=== PATIENT | female | born 1965 | race Caucasian/White ===

== ENCOUNTER → 2023-11-17 11:06 | Outpatient (REF) | payer OTHER, SELFPAY | LOC: RAD 11:06 | PROVIDERS: ATTENDING PHYSICIAN Surgery Vascular Surgery; FAMILY PHYSICIAN Internal Medicine | DX: I71.40 Abdominal aortic aneurysm, without rupture, unspecified (principal) | CPT/HCPCS: 74174; Q9967 ==

== ENCOUNTER 2023-12-01 14:57 | Inpatient (IN) | payer BC, SELFPAY ==
[2023-12-01] VITALS (14 sets, daily range): BP systolic 117–142; BP diastolic 77–106; BMI 24.8
--- NOTE | 2023-12-01 13:57 | W.PN.UPDATE ---
Update Note
Progress Note Update
Vascular H&P:
Plan:
-Admit
-NPO after midnight
-OR tomorrow for EVAR
[2023-12-01 14:31] LABS: % Immature Granulocytes 0.4 % (0-0.5); % Lymphocytes 34.3 % (20.5-51.1); % Monocytes 6.6 % (1.7-9.3); % Neutrophils 54.7 % (42.2-75.2); Absolute Basophils 0.1 10^3/uL (0-0.2); Absolute Eosinophils 0.4 10^3/uL (0-0.7); Absolute Immature Granulocytes 0.1 10^3/uL (0-0.05); Absolute Monocytes 0.8 10^3/uL (0.1-0.6); Absolute Neutrophils 6.3 10^3/uL (1.4-6.5); Hemoglobin 14.3 g/dL (12.0-16.0); Mean Corp Hgb Conc. 34.9 g/dL (33.0-37.0); Mean Corpuscular Hgb 31.2 pg (27.0-31.0); Mean Corpuscular Volume 89.3 fL (81.0-99.0); Mean Platelet Volume 8.9 fL (7.4-10.4); Nucleated Red Blood Cells % 0 %; Platelet Count 404 10^3/uL (130-400); Red Blood Cell Count 4.59 10^6/uL (4.20-5.40); White Blood Cell Count 11.6 10^3/uL (4.8-10.8)
[2023-12-01 14:43] LABS: INR 0.94; PT 12.6 Sec (11.4-14.6)
[2023-12-01 14:44] LABS: APTT 26.7 Sec (23.4-35.0)
[2023-12-01 14:46] LABS: ALT (SGPT) 18 U/L (0-35); AST (SGOT) 24 U/L (14-36); Alkaline Phosphatase 84 U/L (38-126); Blood Urea Nitrogen 9 mg/dl (7-17); Calcium 9.2 mg/dl (8.4-10.2); Carbon Dioxide 27 mmol/L (22-30); Chloride 104 mmol/L (98-107); Estimated Creatinine Clearance 71 ml/min; Glucose 101 mg/dl (70-99); Lipase 225 U/L (23-300); Potassium 4.7 mmol/L (3.5-5.1); Sodium 135 mmol/L (135-145); Total Bilirubin 0.4 mg/dl (0.2-1.3); Total Protein 6.8 g/dl (6.3-8.2); eGFR > 60.00
[2023-12-01] MEDS: DILAUDID 0.5 MG IV (14:47)
[2023-12-01 14:56] LABS: Troponin I < 0.012 ng/ml
[2023-12-01] MEDS: MORPHINE SULFATE 2 MG IV ×2 (16:31→19:50)
[2023-12-01] MEDS: HEPARIN 5000 UNITS SC (16:31)
[2023-12-01 16:56] LABS: Hematocrit 40.3 % (37.0-47.0); Hemoglobin 14.1 g/dL (12.0-16.0); Mean Corpuscular Hgb 31.3 pg (27.0-31.0); Mean Corpuscular Volume 89.6 fL (81.0-99.0); Mean Platelet Volume 8.9 fL (7.4-10.4); Platelet Count 378 10^3/uL (130-400); Red Cell Dist. Width 12.9 % (11.5-14.5); White Blood Cell Count 11.7 10^3/uL (4.8-10.8)
[2023-12-01 16:59] LABS: Magnesium 2.1 mg/dl (1.6-2.3)
--- NOTE | 2023-12-01 16:59 | CON.INTV ---
Consultation
Consultation Request
Date/Time Consultation Requested: 12/01/2023 - 160
Date/Time Consultation Performed: 12/01/2023 - 162
Requesting Provider: Lilli Agustin
Performing Provider: Dr. Lehman
Reason for Consultation: Awaiting EVAR
Medical History
-
Chief Complaint: Elective EVAR
History of Present Illness:
58-year-old female with a past medical history of seizures, migraines, tobacco use disorder, insomnia, asthma, mixed hyperlipidemia, Crohn's disease, and GERD who presents with elective abdominal aortic aneurysm intervention. Patient follows with
Dr. Real as an outpatient with last office visit on 11/23/2023. During that visit her prior CT angiogram was reviewed showing a saccular component of her AAA extending towards the right posterior lateral aspect. Patient has right-sided back pain
and this is potentially related to this aneurysm. It is recommended to treat the aneurysm with aortic stent grafting and this was discussed in regards to its risks and benefits at that office visit. The patient has agreed to proceed with surgery
and she is now awaiting this to be done tomorrow morning/afternoon. Patient is admitted to the ICU while she is pending EVAR.
When I saw the patient she was in bed, nauseous, and having back pain which is on the right side of her back and wraps around to the front. The pain certainly interferes with her movement and causes her to be nauseous especially when she is about
to eat. She is also a smoker, smoking 1 PPD for about 40 years. She has occasional alcohol use and she also uses a THC tincture which helps with her seizures. Current vitals are: HR: 93, BP: 129/90, SpO2: 94% on room air. Patient denies
headache, chest pain, shortness of breath, abdominal pain, fevers or chills.
PMHx: seizures, migraines, tobacco use disorder, insomnia, asthma, mixed hyperlipidemia, Crohn's disease, panic disorder and GERD
PSHx: Appendectomy, cholecystectomy, knee surgery
Past Medical History
Past Medical History: Other (Above as per HPI)
Past Surgical History: Other (Above as per HPI)
Social History
Tobacco: Smoker (1 PPD X 40 years)
Alcohol: Occasional
Drug: Marijuana
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
Family History
Family History: CAD (Father and sister/brother)
Allergies / Home Medications
Allergies
Allergy/AdvReac Type Severity Reaction Status Date / Time
bee venom protein (honey bee) Allergy Anaphylaxis Verified 12/01/23 13:43
colestipol Allergy Nausea / Verified 12/01/23 13:43
Vomiting
Penicillins Allergy Unknown Verified 12/01/23 13:43
sumatriptan [From Imitrex] Allergy Unknown Verified 12/01/23 13:43
Home Medications
Medication Instructions Recorded Confirmed Last Taken Type
Medical Marijuana 0.25 ml PO DAILY 12/01/23 12/01/23 12/01/23 History
cyanocobalamin (vitamin B-12) 5,000 mcg PO DAILY 12/01/23 12/01/23 12/01/23 History
2,000 mcg tablet
escitalopram oxalate 10 mg tablet 10 mg PO HS 12/01/23 12/01/23 11/30/23 History
(Lexapro)
famotidine 20 mg tablet (Pepcid) 20 mg PO BID 12/01/23 12/01/23 12/01/23 History
folic acid 1 mg tablet 1 mg PO DAILY 12/01/23 12/01/23 12/01/23 History
levocetirizine 5 mg tablet (Xyzal) 5 mg PO DAILY 12/01/23 12/01/23 12/01/23 History
perampanel 8 mg tablet (Fycompa) 8 mg PO HS 12/01/23 12/01/23 11/30/23 History
phenytoin sodium extended 100 mg 300 mg PO BID@0900,1800 12/01/23 12/01/23 12/01/23 History
capsule
rimegepant 75 mg disintegrating 75 mg PO DAILYPRN PRN migraines 12/01/23 12/01/23 Unknown History
tablet (Nurtec ODT)
rosuvastatin 5 mg tablet (Crestor) 5 mg PO QPM 12/01/23 12/01/23 11/30/23 History
sucralfate 1 gram tablet (Carafate) 1 g PO DAILY@1500 12/01/23 12/01/23 11/30/23 History
zolpidem 10 mg tablet 10 mg PO HS 12/01/23 12/01/23 11/30/23 History
Review of Systems
-
History Source: Patient
All other systems: Negative unless noted (12 point ROS performed and is negative unless mentioned above.)
Vitals / Labs / Diagnostic Testing
Vital Signs
Temp Pulse Resp BP Pulse Ox
98.0 F 87 17 139/95 98
12/01/23 13:37 12/01/23 15:15 12/01/23 15:15 12/01/23 14:18 12/01/23 13:37
Lab Data
12/01/23 16:41
Laboratory Results
12/01/23
14:22
PT 12.6
INR 0.94
APTT 26.7
Diagnostic Testing:
Physical Exam
-
HEENT: Normocephalic and Anicteric
Cardiovascular: S1/S2 and Peripheral Edema (negative)
Respiratory: Clear, Wheeze (negative), Rales (negative), Rhonchi (negative) and Non-Labored Respirations
GI: Soft, Non Distended, Non Tender and Normal Bowel Sounds
Neurology: AO x 3 and No Motor Deficits
Skin: Warm and Dry
General: Comfortable and Other (tenderness to palpation of right posterior back; no erythema seen and no fluctuance palpated)
Assessment
-
Assessment: 58-year-old female active cigarette smoker with a PMHx of seizures, migraines, insomnia, asthma, mixed hyperlipidemia, Crohn's disease, and GERD who presents with elective abdominal aortic aneurysm intervention. Patient follows with
Farhan as an outpatient, and she has a known saccular component of her AAA extending towards the right posterior lateral aspect. Patient has chronic right-sided back pain and this AAA could be related to that pain. She is now admitted to the ICU
while she is pending EVAR tomorrow.
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
Impression:
#AAA c/b saccular component awaiting EVAR
#Active tobacco use
#Chronic right sided back pain - either MSK or is related to this AAA given its saccular component with extension towards right postero-lateral aspect
#Leukocytosis - likely reactive to nausea/chronic pain - no current signs of infection
#Thrombocytosis (mild)
Plan:
NPO past MN for EVAR
Pain control
Encourage incentive spirometer
Antiemetics with Zofran +/- Ativan, however monitor for any worsening sedation
Supplemental oxygen as needed
Preoperative preparation as per vascular surgery
Considering she is an active smoker, I will order a nicotine patch 21 mg
DVT prophylaxis: HSQ
Early nutrition post-op
Early mobilization post-op
Data:
CXR 12-01-2023: Minimal left mid to lower lung discoid atelectasis versus scarring.
[2023-12-01 17:02] LABS: Urine Albumin Negative (Neg - Trace); Urine Bilirubin Negative (Negative); Urine Character Clear (Clear); Urine Color Yellow; Urine Glucose Negative (Negative); Urine Ketone Negative (Negative); Urine Leukocyte Negative (Negative); Urine Nitrite Negative (Negative); Urine Occult Blood Negative (Negative); Urine Urobilinogen Negative (Neg - 1+)
[2023-12-01 17:04] LABS: INR 0.97; PT 12.9 Sec (11.4-14.6)
[2023-12-01 17:05] LABS: APTT 26.4 Sec (23.4-35.0)
[2023-12-01 17:07] LABS: Blood Urea Nitrogen 10 mg/dl (7-17); Calcium 9.4 mg/dl (8.4-10.2); Carbon Dioxide 26 mmol/L (22-30); Chloride 102 mmol/L (98-107); Estimated Creatinine Clearance 81 ml/min; Glucose 91 mg/dl (70-99); Potassium 4.3 mmol/L (3.5-5.1); Sodium 136 mmol/L (135-145); eGFR > 60.00
--- NOTE | 2023-12-01 17:13 | ED.GENMED ---
History of Present Illness
General
Chief Complaint: Back Pain
Source: patient
Exam Limitations: none
Time Seen by Provider: 12/01/23 13:45
Nursing documentation reviewed up to this point in time: agreed with
Travel History
Have you had any contact with someone who has COVID-19?: No
Do you have any symptoms of coronavirus? Fever > 100 degrees, chills, cough, shortness of breath, sore throat, loss of taste or smell, muscle aches, or headache?: No
History of Present Illness
History of Present Illness:
pt is a 58 y/o F sent in by vascular surgery for admission. Patient has a history of a infrarenal abdominal aortic aneurysm, last CT was in September. She has been having ongoing back pain but suddenly in the middle of the night at 2 AM the back
pain got worse on the right side and wraps around to her abdomen. She says for about a week she has been feeling like her feet are cold. Patient called the vascular office and spoke with someone telling her to come to the ER for admission and the
plan is to have operative management of the aneurysm tomorrow. Patient has no worsening symptoms now than she did at 2 AM. Is 8 out of 10 pain and worse with movement and deep breathing. She does not overly feel short of breath. Vascular PA was
down to see the patient and was in communication with Dr. Real
Who did not recommend that the patient have repeated imaging based on the symptoms at this time
Past History
Past History
ED Past Medical History: Asthma, GERD and Other (PE)
ED Past Surgical History: Cholecystectomy and Other (common bile duct bypass)
Social History
Tobacco: Non-smoker
Alcohol: None
Drug: None
Personal:
Review of Systems
Review of Systems
Allergies reviewed?: Yes
All Other Systems: Not applicable
Phy Exam
Physical Exam
Physical Exam:
GENERAL: Alert , mild diiscomfort, worse with changing positoins
EYE: pupils equal and reactive
NECK: Supple
ENT: o/p clr, mmm.
CARDIAC: Regular rate and rhythm .2+ cap refill, pulses dp intact b/l ,feet warm
LUNGS: Clear breath sounds bilaterally, no acute respiratory distress, no wheezes/rales/rhonchi
ABDOMEN: Soft, mild right sided upper abd tenderness, no r/g, , normal bowel sounds
back: right lateral back tendrness, cva region, no rash, pain with changing positions
NEUROLOGICAL: Alert and oriented, no focal neuro deficits
SKIN: Warm and dry, skin intact.
MUSCULOSKELETAL: No edema, well perfused. neg tigist's sign
PSYCH: Normal and appropriate interaction.
Course
Orders/Labs/Results
Orders:
Orders
12/01/23 Lunch
Regular
At Your Request: Full Participation
12/01/23 13:59
Admit/Transfer Patient As Directed
Co-Sign Provider:
Level of Care: Inpatient admission
Assign to:: ICU
Physician / Group: Vasc
Diagnosis: AAA
Reason for Hospitalization: AAA requiring EVAR, BP management
Expected length of stay greater than two midnights?: Yes
ELOS- Estimated Length of Stay in days: 4
I certify the patient meets the requirements for IP care: Yes
12/01/23 14:00
Code Status As Directed
Resuscitation Status: Full Code
12/01/23 14:18
HYDROmorphone [Dilaudid] 0.5 mg IV NOW STA
12/01/23 14:19
Electrocardiogram (*1) Urgent
Reason for Study: Abdominal Pain
EKG- Treatment ONCE
12/01/23 14:22
Complete Blood Count/With Diff Urgent
PTT Urgent
Prothrombin Time Urgent
Troponin I Urgent
12/01/23 14:23
Comprehensive Metabolic Panel Urgent
Lipase Urgent
Magnesium Urgent
Comment: ADD ON
12/01/23 16:00
Acetaminophen [Tylenol] 650 mg PO Q4HPRN PRN
Bisacodyl [Dulcolax] 10 mg RECTAL DAILYPRN PRN
Heparin 5,000 units SC Q8
Morphine Sulfate 2 mg IV Q2HPRN PRN
Oxycodone [Roxicodone] 5 mg PO Q4HPRN PRN
12/01/23 16:00
Admit Patient As Directed
Co-Sign Provider:
Level of Care: Inpatient admission
Assign to:: Telemetry
Physician / Group: vasc
Diagnosis: AAA
Reason for Telemetry: Other
Other Reason for Telemetry: pre op
Date to Stop Telemetry: 12/03/23
Time to Stop Telemetry: 11:00
Reason for Hospitalization: AAA requiring EVAR
Expected length of stay greater than two midnights?: Yes
ELOS- Estimated Length of Stay in days: 4
I certify the patient meets the requirements for IP care: Yes
Activity As Directed
Activity Level: Bathroom Privileges
Bladder Scan As Directed
Follow Bladder Retention/Intermittent Cath Algorithm?: Yes
Frequency: Per Retention Algorithm
Intake/ Output As Directed
Frequency: Per unit guidelines
Vital Signs As Directed
Frequency: Per unit guidelines
DX Deep Vein Thrombosis Video Routine
12/01/23 16:41
Type+Screen Urgent
Basic Metabolic Panel Urgent
Complete Blood Count/No Diff Urgent
PTT Urgent
Prothrombin Time Urgent
Urinalysis Reflex To Culture Urgent
Date Specimen was Collected: 12/01/23
Time Specimen was Collected: 14:21
12/02/23 06:00
Type And Crossmatch IN AM
NPO
Allow oral meds: Yes
Allow clear liquids: No
NPO with Ice Chips: No
Mupirocin [Bactroban 2% Ointment] See Dose Instructions NASAL ONCE ONE
OR/Surgery Prep As Directed
Type of Prep: Clip surgical area, 2% CHG wipe pt
Abnormal Lab Results
12/01/23 12/01/23
14:22 14:23
WBC 11.6 H 10^3/uL
(4.8-10.8)
MCH 31.2 H pg
(27.0-31.0)
Plt Count 404 H 10^3/uL
(130-400)
Abs Immat Gran (auto) 0.1 H 10^3/uL
(0-0.05)
Absolute Lymphs (auto) 4.0 H 10^3/uL
(1.2-3.4)
Absolute Monos (auto) 0.8 H 10^3/uL
(0.1-0.6)
Glucose 101 H mg/dl
(70-99)
12/01/23 14:22
12/01/23 14:23
Vital Signs
Initial and Last Documented VS:
Initial Vital Signs
Temp Pulse Resp BP Pulse Ox
98.0 F 105 16 132/94 98
12/01/23 13:37 12/01/23 13:37 12/01/23 13:37 12/01/23 13:37 12/01/23 13:37
Last Documented Vital Signs
Temp Pulse Resp BP Pulse Ox
98.0 F 87 17 139/95 98
12/01/23 13:37 12/01/23 15:15 12/01/23 15:15 12/01/23 14:18 12/01/23 13:37
MDM/Problems Addressed
Differential Diagnosis Includes:
AAA, kidney stone, PE
MDM/Problems Addressed:
58 y/o F with h/o AAA with sacular component infrarenal is here to be admitted to vascular surgery due to ongoign sypmtoms
for a EVAR tomorrow
pt is havin gpain but is hemodynamically stable
ua neg, no blood
hg stable
signed out to vascular surgyer;p
*Critical Care Note
Total Time (30-74mins, 75-104mins- exclusive of procedures): Not Applicable
ED Attending Note
-
Portions of this chart may have been created with voice recognition software.� Occasional wrong word or��sound alike� substitutions may have occurred due to the inherent limitations of voice recognition software.
Discharge Plan
Departure
Patient Disposition: Admit
Date of Disposition: 12/01/23
Time of Disposition: 14:50
Admit to: ICU
Presentation/result/management discussed w/ accepting MD/DO: haresh
Condition: Fair
Covid-19: Not Applicable
Discharge Problem:
Back pain, AAA (abdominal aortic aneurysm)
Interventions
Interventions:
*Risk Screen - Suicide Last Done: 12/01/23 14:03
*General Assessment Last Done: 12/01/23 14:03
*Neglect/Abuse Screening Last Done: 12/01/23 14:03
*ED COVID-19 Vaccine History Last Done: 12/01/23 13:37
*Nursing Disposition Last Done: 12/01/23 16:00
ED-Musculoskeletal Assessment Last Done: 12/01/23 14:03
Discharge Date and Time
Discharge Date/Time: 12/01/23 16:15
[2023-12-01] MEDS: CRESTOR 5 MG PO (17:55)
[2023-12-01] MEDS: DILANTIN 300 MG PO (17:56)
[2023-12-01] MEDS: ZOFRAN 4 MG IV (17:57)
--- NOTE | 2023-12-01 18:53 | PTCARENOTE ---
1615-Received pt from ED via stretcher.Pt is awake and alert.Speech is appropriate.+VASQUEZ.Gait is steady.c/o right flank pain that radiates to RUQ abdominal pain.Medicated with Morphine with good relief.SR-ST noted.Decreased breath sounds
bibasilar.POX 98% on RA.Occasional non productive cough.Appetite poor.c/o intermittent nausea.No emesis.Medicated with Zofran.Voided yellow urine in bathroom.Pt's at bedside.Plan of care discussed.
[2023-12-01] MEDS: TYLENOL 650 MG PO (18:57)
[2023-12-01] MEDS: ROXICODONE 5 MG PO (18:58)
[2023-12-01] MEDS: PEPCID 20 MG PO (19:50)
--- NOTE | 2023-12-01 20:43 | PTCARENOTE ---
Received patient in bed, AAOx3, following commands, VASQUEZ, complaining of 9/10 stabbing pain in RUQ, given prn morphine. Normal sinus, 80s. BP stable, 120s/80s. Palpable radial and pedal pulses bilaterally. Decreased bibasilar breath sounds. 93% on
room air. No nausea currently, ate 90% of dinner. Abdomen tender to palpation, soft, round, positive bowel sounds. Patient walks to bathroom to void. Skin intact. LAC WNL. ABO2 sent. Hourly rounding and patient safety checks ongoing.
[2023-12-01] MEDS: NON-FORMULARY ITEM 8 MG PO (21:20)
[2023-12-01] MEDS: AMBIEN 10 MG PO (21:20)
[2023-12-01] MEDS: LEXAPRO 10 MG PO (21:20)
[2023-12-02] VITALS (16 sets, daily range): BP systolic 103–143; BP diastolic 63–99; BMI 24.9
--- NOTE | 2023-12-02 00:15 | PTCARENOTE ---
Patient assessment unchanged from previous, sleeping comfortably. Hourly rounding and patient safety checks ongoing.
[2023-12-02] MEDS: HEPARIN 5000 UNITS SC ×4 (00:24→23:02)
--- NOTE | 2023-12-02 04:24 | PTCARENOTE ---
Patient assessment unchanged from previous, resting comfortably. Hourly rounding and patient safety checks ongoing.
[2023-12-02] MEDS: BACTROBAN 2% OINTMENT 1 APPLIC NASAL (05:47)
[2023-12-02] MEDS: TYLENOL 650 MG PO ×4 (05:47→22:09)
[2023-12-02 06:28] LABS: % Eosinophils 6.3 % (0-6); % Immature Granulocytes 0.3 % (0-0.5); % Lymphocytes 43.8 % (20.5-51.1); % Monocytes 7.2 % (1.7-9.3); % Neutrophils 41.4 % (42.2-75.2); Absolute Basophils 0.1 10^3/uL (0-0.2); Absolute Eosinophils 0.6 10^3/uL (0-0.7); Absolute Lymphocytes 4.2 10^3/uL (1.2-3.4); Absolute Monocytes 0.7 10^3/uL (0.1-0.6); Hematocrit 38.7 % (37.0-47.0); Hemoglobin 13.6 g/dL (12.0-16.0); Mean Corp Hgb Conc. 35.1 g/dL (33.0-37.0); Mean Corpuscular Hgb 31.6 pg (27.0-31.0); Mean Platelet Volume 9.1 fL (7.4-10.4); Nucleated Red Blood Cells % 0 %; Platelet Count 350 10^3/uL (130-400); Red Cell Dist. Width 13.1 % (11.5-14.5); White Blood Cell Count 9.7 10^3/uL (4.8-10.8)
[2023-12-02] MEDS: VITAMIN B-12 5000 MCG PO (07:52)
[2023-12-02] MEDS: DILANTIN 300 MG PO ×2 (07:52→17:49)
[2023-12-02] MEDS: ZYRTEC 10 MG PO (07:53)
[2023-12-02] MEDS: FOLVITE 1 MG PO (07:53)
[2023-12-02] MEDS: MORPHINE SULFATE 2 MG IV ×5 (07:54→23:24)
[2023-12-02] MEDS: PEPCID 20 MG PO ×2 (07:54→19:50)
[2023-12-02 08:05] LABS: Blood Urea Nitrogen 11 mg/dl (7-17); Carbon Dioxide 26 mmol/L (22-30); Chloride 108 mmol/L (98-107); Estimated Creatinine Clearance 81 ml/min; Glucose 95 mg/dl (70-99); Magnesium 2.2 mg/dl (1.6-2.3); Phosphorus 5.1 mg/dl (2.5-4.5); Potassium 4.6 mmol/L (3.5-5.1); Sodium 137 mmol/L (135-145); eGFR > 60.00
--- NOTE | 2023-12-02 08:51 | W.PN.INTV ---
Today's Communication / Plan
Recommendations
Encourage incentive spirometer
Pain control
Antiemetics as needed
Postoperative management as per vascular surgery
Assessment
-
Assessment: 58-year-old female active cigarette smoker with a PMHx of seizures, migraines, insomnia, asthma, mixed hyperlipidemia, Crohn's disease, and GERD who presents with elective abdominal aortic aneurysm intervention. Patient follows with
Farhan as an outpatient, and she has a known saccular component of her AAA extending towards the right posterior lateral aspect. Patient has chronic right-sided back pain and this AAA could be related to that pain. She is now admitted to the ICU
while she is pending EVAR tomorrow.
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
Impression:
#AAA c/b saccular component awaiting EVAR today
#Active tobacco use
#Chronic right sided back pain - either MSK or is related to this AAA given its saccular component with extension towards right postero-lateral aspect
#Leukocytosis - likely reactive to nausea/chronic pain - no current signs of infection - now resolved
#Thrombocytosis (mild) - now resolved
Plan:
NPO for EVAR
Pain control
Encourage incentive spirometer
Antiemetics with Zofran +/- Ativan, however monitor for any worsening sedation
Supplemental oxygen as needed
Postoperative management as per vascular surgery
Considering she is an active smoker, I ordered a nicotine patch 21 mg --> patient refused
DVT prophylaxis: HSQ
Early nutrition post-op
Early mobilization post-op
Continue ICU level care given patient undergoing operation today with need for hourly vital signs and close postoperative monitoring.
Critical care statement: A total of 40 minutes of critical care time was provided for this patient today. This includes management of unstable vital signs, evaluation of the patient at bedside, reviewing the patient's pertinent medical records
including radiographs, microbiology, laboratory evaluations, and discussion with primary team, consultants, pharmacy, nutrition, physical therapy, case management, charge nurse, critical care nursing, and respiratory therapy.
Data:
CXR 12-01-2023: Minimal left mid to lower lung discoid atelectasis versus scarring.
Subjective Dataa
Subjective Data
Date of Service:
Date of Service: December 02, 2023
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
Subjective:
Pt seen this AM. Awaiting EVAR. HR 72, BP 129/81, SpO2 93% on room air. Currently denies any nausea, abdominal pain, fevers or chills. Still has her right-sided back pain but it is stable.
Review of Systems
General: Other (Negative unless mentioned above)
Objective Data
Data Reviewed
Vital Signs / I&O / Oxygen:
Vital Signs
Temp Pulse Resp BP Pulse Ox
97.9 F 84 15 123/83 91
12/02/23 07:26 12/02/23 09:15 12/02/23 09:15 12/02/23 09:00 12/02/23 09:15
Intake and Output
12/01/23 12/02/23 12/03/23
06:59 06:59 06:59
Intake Total 100 / 100
Output Total 200 / 200 300 / 300
Balance -100 / -100 -300 / -300
SaO2 91
Physical Exam
General: Comfortable
HEENT: Normocephalic and Anicteric
Cardiovascular: S1-S2 and Peripheral Edema (negative)
Respiratory: Clear, Wheeze (negative), Crackles (negative) and Rhonchi (negative)
GI: Soft, Non Distended, Non Tender and Normal Bowel Sounds
Neurology: AO x 3
Skin: Warm and Dry
Labs/Micro/Reports
Lab Data
12/02/23 05:47
12/02/23 07:34
Laboratory Results
12/01/23 12/01/23
14:22 16:41
PT 12.6 12.9
INR 0.94 0.97
APTT 26.7 26.4
--- NOTE | 2023-12-02 09:30 | PTCARENOTE ---
Received pt awake and alert.Speech is appropriate.+VASQUEZ.c/o right flank pain that radiates to RUQ abdomen 05/26.Medicated with Morphine with relief.SR noted.Decreased breath sounds bibasilar.POX 97% on RA.NPO.No BM.Voids yellow urine in bathroom.Pt
states that she feels anxious and wants to get surgery completed.She is concerned about her as she assists with his care.Plan of care discussed.
--- NOTE | 2023-12-02 11:06 | W.SUR.PREOP ---
Pre-Operative Surgical Note
-
I have examined this patient prior to the performance of the scheduled procedure.
The patient's condition is unchanged from the time of the current History and
Physical and the patient is able to undergo the scheduled procedure.
--- NOTE | 2023-12-02 11:59 | CM ---
CM following re: discharge planning.
Discussed in rounds, reviewed pt's chart, met with pt and pt's at bedside.
Pt is a 58 year old female, admitted with primary dx of AAA c/b saccular component awaiting EVAR. per Rounds meeting pt for EVAR today, feels very anxious.
Pt reports she lives with in a 2SH, 2 steps to enter, has 3 supportive children. 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 No DME, VN or SNF history.
PCP: Franchesca Curran
Pharmacy: [facility]
D/C plan: home with anticipated no needs. to transport at discharge.
CM will follow with discharge planning updates as hospitalization progresses
--- NOTE | 2023-12-02 12:04 | PTCARENOTE ---
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
--- NOTE | 2023-12-02 12:44 | PTCARENOTE ---
Pt transported to ICU via bed with OR RNs.
[2023-12-02] MEDS: VANCOCIN 200 IV (13:40)
[2023-12-02 13:43] LABS: ACT-LR - POC 269 Seconds (116-155)
--- NOTE | 2023-12-02 14:19 | OR.RPT ---
Operative Report
Operative Report
Date of Operation: 12/02/2023
Pre Op Diagnosis: Abdominal aortic aneurysm with concerning saccular component and abdominal pain of unclear etiology
Post Op Diagnosis: Abdominal aortic aneurysm with concerning saccular component and abdominal pain of unclear etiology
Procedure:
1.) Endovascular aortic aneurysm repair using Endologix AFX device:
25-/16-30 (main body)
28-/75 (proximal extension)
2.) Diagnostic aortogram
3.) Introduce wire/catheter to aorta from BILATERAL femoral artery access
4.) Ultrasound-guided percutaneous access to the bilateral common femoral arteries
5.) Proglide closure of bilateral femoral artery access
Surgeon: Thien Real III, MD
Roofing Subcontractor: DHARMESH Aguillon
Fluoroscopy:
12.1 minutes
178 mGy
DAP 68.15
Anesthesia: General
Complications: None
Estimated Blood Loss: Less than 20 cc
History and Indications for Procedure: 58-year-old female with abdominal pain of unclear etiology and an abdominal aortic aneurysm with a concerning saccular component extending right posterior laterally.
Procedure in Detail: Zara Rome was correctly identified and placed supine on the operating table. After adequate induction of anesthesia the abdomen, pelvis and bilateral groins were positioned, prepped and draped in the usual sterile fashion.
Preoperative antibiotics were administered. A timeout procedure was performed with the nursing and anesthesia staff confirming the patients identity as well as the nature and laterality of the procedure.
Under ultrasound guidance, bilateral femoral artery sheath access was obtained. The arteries were patent and free of calcium. Ultrasound images of the femoral arteries were saved to the medical record. A pre-close technique was performed on the
right femoral artery access with 2 offset Proglide closure devices. The sutures were secured and tucked under surgical towels for use at the end of the case. A 8 Fr sheath was placed into the right femoral access. A 7 Fr sheath was placed into the
left femoral access. The patient was systemically heparinized.
From the right femoral access an KMP catheter and Bentson wire were advanced to the proximal descending thoracic aorta. The wire was exchanged out through the MPA catheter for a Lunderquist wire. From the left femoral access a Bentson wire was
advanced into the abdominal aorta.
Over the Lunderquist wire in the right femoral access I placed the AFX introducer sheath and advanced the radio-opaque sheath tip to the abdominal aorta. An En-Snare catheter was placed over a Bentson wire from the left femoral access and advanced
to the aortic bifurcation. The En-Snare was then advanced through to the catheter tip.
The contralateral limb wire of the AFX2 main body was introduced through the introducer sheath and advanced to the aortic bifurcation. The 25-70/16-30 AFX2 bifurcated main body was then loaded onto the Lunderquist wire and advanced through the
introducer sheath. The wire was snared from the contralateral side and pulled out the left femoral access and the AFX2 main body was advanced until the limbs were above the aortic bifurcation. The entire system was then pulled down onto the aortic
bifurcation. The main body was then deployed by pulling the control cord.
The contralateral limb was then deployed by pulling the yellow limb cover. Once this was completed I advanced a pigtail catheter over the contralateral limb wire until the tip was in contact with the wire lock. The contralateral limb was then pulled
as I advanced the pigtail up to release it from the wire lock. The wire was removed and the formed pigtail catheter was then advanced proximally.
The ipsilateral limb was deployed by pinning the inner core and retracting the AFX introducer sheath.
The delivery system was removed from the AFX introducer sheath over the wire. The dilator was reinserted and the introducer sheath was carefully advanced through the iliac limb and main body. The dilator was removed. Through the introducer sheath
I advanced a proximal endograft extension, 28�28/75 and performed an arteriogram to clearly visualize the renal arteries. The stent was positioned appropriately below the renal arteries and deployed under roadmap guidance in the desired location.
The delivery system was removed bilaterally. A Coda balloon was introduced on the right and used to profile the proximal and distal main body seal zones as well as all areas of overlap. The right iliac limb was also ballooned. The Coda balloon was
readvanced over the stiff wire proximal to the main body and the stiff wire was removed.
A completion aortogram demonstrated an excellent technical result. The aneurysm was excluded. No endoleaks were seen. There was brisk flow through the stent and iliac limbs. The renal arteries were widely patent bilaterally. The iliac bifurcations
were preserved bilaterally.
The Proglide sutures were secured on the right after removing the sheaths and wires. Protamine was administered. A single Pro-glide closure device was then utilized for the left femoral access. The knot was secured after removing the sheath and
wire. Additional pressure was applied to the puncture sites bilaterally for 5 minutes. Hemostasis was achieved bilaterally.
Skin glue was applied bilaterally
The patient tolerated the procedure well and was taken to the PACU in stable condition.
Attestation: I was present and responsible for the entire procedure
Signed:
Thien Real III, MD
[facility]
[phone] (qujc)
--- NOTE | 2023-12-02 14:31 | W.PV.INTER ---
Addendum entered and electronically signed by DHARMESH Aguillon 12/02/23 14:41:
Correction: ASA not added to medications d/t possible allergy per the Pt
Original Note:
VPI Note
Pre Admission Note
Functional Status: Light Work
Ambulation: Ambulate Independently
Pre Op Medications
Pre Op ASA: No
Pre Op Statin: Yes
Pre Op HARJINDER Inhibitor/ARB: No
Pre Op P2y12 Antagonist: None
Pre Op Beta Blockers: No
Pre Op Chronic Anticoagulant: None
Pre Op Cilostazol: No
Post Op Medications
Post Op ASA: Yes
Post Op Statin: Yes
Post Op HARJINDER Inhibitor/ARB: No
Post Op P2y12 Antagonist: None
Post Op Beta Blockers: No
Post Op Chronic Anticoagulant: None
Post Op Cilostazol: No
[2023-12-02 14:38] LABS: Glucose - Point of Care 107 mg/dl (70-99)
[2023-12-02 14:41] LABS: Hematocrit 36.7 % (37.0-47.0); Hemoglobin 12.7 g/dL (12.0-16.0); Mean Corp Hgb Conc. 34.6 g/dL (33.0-37.0); Mean Corpuscular Hgb 31.2 pg (27.0-31.0); Mean Corpuscular Volume 90.2 fL (81.0-99.0); Mean Platelet Volume 8.7 fL (7.4-10.4); Platelet Count 277 10^3/uL (130-400); Red Blood Cell Count 4.07 10^6/uL (4.20-5.40); Red Cell Dist. Width 13.1 % (11.5-14.5); White Blood Cell Count 11.6 10^3/uL (4.8-10.8)
[2023-12-02 14:53] LABS: Blood Urea Nitrogen 9 mg/dl (7-17); Calcium 7.9 mg/dl (8.4-10.2); Carbon Dioxide 24 mmol/L (22-30); Chloride 111 mmol/L (98-107); Estimated Creatinine Clearance 81 ml/min; Glucose 109 mg/dl (70-99); INR 1.11; PT 14.1 Sec (11.4-14.6); Potassium 3.9 mmol/L (3.5-5.1); Sodium 136 mmol/L (135-145); eGFR > 60.00
[2023-12-02] MEDS: MORPHINE SULFATE 4 MG IV (14:55)
[2023-12-02] MEDS: NSS 1000 IV (15:09)
[2023-12-02] MEDS: CARAFATE PO (16:34)
--- NOTE | 2023-12-02 16:58 | PTCARENOTE ---
1605-Received pt from PACU via bed.Pt is awake and alert.Speech is appropriate.+VASQUEZ.c/o left leg and back pain.Received morphine as ordered.SR noted.Left A Line intact.IVF infusing.POX 97% O2 2l NC.Decreased breath sounds bibasilar.Tolerating clear
liquids.No BM.Real draining yellow urine.BL groin incisions intact with puncture wounds with adhesive.No drainage,hematoma noted.Pt's at bedside.Plan of care discussed.
[2023-12-02] MEDS: CRESTOR 5 MG PO (17:49)
--- NOTE | 2023-12-02 18:30 | PTCARENOTE ---
Pt flat x 2 hours as ordered.hob at 30 degrees now.Pt tolerated clear liquids, is ordering regular diet.
--- NOTE | 2023-12-02 20:32 | PTCARENOTE ---
~1905: Handoff report received from off going RN. Dual RN neurovascular and b/l femoral groin incision assessment completed. Left groin incision noted to have old blood under surgical adhesive. No hematoma to b/l groin.
~[id number]: Patient assessed, AAOx4 and able to make her needs known. The patient complains of 7/10 pain with movement. Plan of care for the shift reviewed with the patient. VSS. Pt's talking and laughing with staff. Roxicodone offered but the pt
declined option as 'it gave me a bad migraine yesterday' per the patient. Pt asked for the morphine instead. Sinus rhythm on the monitor. Left DP palpable and normal and right DP is weak but palpable. neurovascular assessment as documented. Skin is
warm and dry. Left radial arterial line zeroed, flushed, and calibrated. Waveform is normal. Diminished breath sounds. Attempted to wean the patient off her o2 nc 2L but SpO2 decreased to 90%. oxygen left in place at 2L and pt's SpO2 improved to
96%. +BS. Real catheter is draining yellow urine. 30 degrees HOB restriction reviewed with the patient. Pt encouraged to reposition herself. All needs are met at this time. Safety measures are in use. Call gonzalez is within reach.
[2023-12-02] MEDS: AMBIEN 10 MG PO (22:01)
[2023-12-02] MEDS: NON-FORMULARY ITEM 8 MG PO (22:01)
[2023-12-02] MEDS: LEXAPRO 10 MG PO (22:01)
[2023-12-03] VITALS (13 sets, daily range): BP systolic 99–138; BP diastolic 66–95; BMI 25.1
--- NOTE | 2023-12-03 00:21 | PTCARENOTE ---
PAtient reassessed. Remains AAOx3 and able to make her needs known. PRN administered for groin pain. PAtient cleansed with CHG wipes and linens changed. . Neurovascular assessment as documented. Safety measures maintained.
[2023-12-03] MEDS: NSS 1000 IV (04:33)
[2023-12-03 04:43] LABS: Hematocrit 34.4 % (37.0-47.0); Hemoglobin 11.8 g/dL (12.0-16.0); Mean Corp Hgb Conc. 34.3 g/dL (33.0-37.0); Mean Corpuscular Hgb 31.3 pg (27.0-31.0); Mean Corpuscular Volume 91.2 fL (81.0-99.0); Platelet Count 261 10^3/uL (130-400); Red Blood Cell Count 3.77 10^6/uL (4.20-5.40); Red Cell Dist. Width 12.8 % (11.5-14.5); White Blood Cell Count 14.4 10^3/uL (4.8-10.8)
[2023-12-03] MEDS: MORPHINE SULFATE 2 MG IV ×3 (04:46→14:15)
--- NOTE | 2023-12-03 04:57 | PTCARENOTE ---
Patient is awake. AAOx3 and able to make her needs known. Pt has occasional cough that causes pain to b/l groin per the pt. PRN administered. LAbs drawn and sent. Pt continues to reposition herself. Safety measures maintained.
[2023-12-03 05:13] LABS: INR 1.01; PT 13.1 Sec (11.4-14.6)
[2023-12-03 05:14] LABS: APTT 35.3 Sec (23.4-35.0)
[2023-12-03 05:23] LABS: Blood Urea Nitrogen 11 mg/dl (7-17); Calcium 8.3 mg/dl (8.4-10.2); Carbon Dioxide 21 mmol/L (22-30); Chloride 112 mmol/L (98-107); Estimated Creatinine Clearance 95 ml/min; Glucose 97 mg/dl (70-99); Potassium 4.1 mmol/L (3.5-5.1); Sodium 135 mmol/L (135-145); eGFR > 60.00
--- NOTE | 2023-12-03 08:12 | W.PN.VS ---
Today's Communication / Plan
-
POD 1 EVAR
- hutson out
- art line out
- mobilize
-[place]
- ok to downgrade
- stop oxy and start tramadol per patient preference
Assessment/Plan
-
POD 1 EVAR
- hutson out
- art line out
- mobilize
-[place]
- ok to downgrade
- stop oxy and start tramadol per patient preference
Subjective Data
-
Date of Service: December 03, 2023
POD 1 EVAR
No belly or back pain
R foot 'feels cold'
No pain, numbness or tingling in feet
tolerated PO intake with no nausea or vomiting
no flatus or BM
Objective Data
-
Vital Signs
Temp Pulse Resp BP Pulse Ox
98.2 F 72 13 103/67 92
12/03/23 03:41 12/03/23 05:00 12/03/23 05:00 12/02/23 15:30 12/03/23 05:00
Intake and Output
12/02/23 12/03/23 12/04/23
06:59 06:59 06:59
Intake Total 100 / 100 1200 / 1200
Output Total 200 / 200 2325 / 2325
Balance -100 / -100 -1125 / -1125
Intake:
Oral fluids 100 / 100
IV fluids (Total) 1200 / 1200
Nss 1,000 ml @ 80 mls/hr IV . 1200 / 1200
[id number] [facility] Rx#:[id number]
Output:
Urine, Hutson 2024
Urine, Voided 200 / 200 300 / 300
Lab Results
12/03/23 04:36
12/03/23 04:36
Calcium 8.3 mg/dl (8.4-10.2) L 12/03/23 04:36
Phosphorus 5.1 mg/dl (2.5-4.5) H 12/02/23 07:34
Magnesium 2.2 mg/dl (1.6-2.3) 12/02/23 07:34
Total Bilirubin 0.4 mg/dl (0.2-1.3) 12/01/23 14:23
AST 24 U/L (14-36) 12/01/23 14:23
ALT 18 U/L (0-35) 12/01/23 14:23
Alkaline Phosphatase 84 U/L (38-126) 12/01/23 14:23
Total Protein 6.8 g/dl (6.3-8.2) 12/01/23 14:23
Albumin 4.0 g/dl (3.5-5.0) 12/01/23 14:23
Physical Exam
-
2+ R PT
2+ L DP
Feet warm, motor/sensory intact
groins soft, no hematoma or ecchymosis
abdomen soft, nontender, nondistended
[2023-12-03] MEDS: HEPARIN 5000 UNITS SC ×3 (08:45→23:55)
--- NOTE | 2023-12-03 09:00 | PTCARENOTE ---
Rec'd pt at 0700 when pulse check completed with offgoing shift. Rec'd pt awake alert and oriented. Talkative. Admits to 6/10 L groin discomfort and 7/10 R groin discomfort. Bilat groin punctures with surgical adhesive present. No reddenss,
swelling or drainage. Bilat legs/feet are warm + pulses as documented. R PT wk to palp, L PT present with the doppler. L DP palpable, R DP present with the doppler. No edema. Medicated at 0845 with Morphine 2 mg IV. Skin otherwise with pale pink wm
and dry. Respirs are unlabored on RA with sats of 91-93%. Denies shortness of breath. BS are decreased at the bases. Monitor SR. VS as documented. MAP's 90-100 both cuff and a line. Dr. Nahid alarcon intact- site wnl. Zeroed and recalibrated.
Running either congruent or about 15 -20 mm/hg higher than the cuff. updated on MAP and ok given use cuff BP and remove a line. Nahid ruiz A line dc'd at 0900-pressure held over the site. No hematoma. Good CMS checks to distal extrem. Abd is
round and soft with + BS. Denies nausea. Real draining clear yellow urine. Removed at 0900 per md order. IV NSS infusing via R arm IV site at 80 ml/hr. Site wnl. Capped ints intact R and L arm. Pt able to help with repositioning. Plan of care
reviewed with pt. Call gonzalez in reach. Breakfast ordered. Dr. Lopez in this AM earlier
--- NOTE | 2023-12-03 09:01 | W.PN.INTV ---
Today's Communication / Plan
Recommendations
Encourage incentive spirometer
Pain control
Antiemetics as needed
Postoperative management as per vascular surgery
Vascular surgery is ok with downgrade - transfer pt to telemetry. Core Drill Operator/pulmonary service will now sign off. Please reconsult if there are any additional questions/concerns, or if respiratory issues develop.
Assessment
-
Assessment: 58-year-old female active cigarette smoker with a PMHx of seizures, migraines, insomnia, asthma, mixed hyperlipidemia, Crohn's disease, and GERD who presents with elective abdominal aortic aneurysm intervention. Patient follows with
[facility] as an outpatient, and she has a known saccular component of her AAA extending towards the right posterior lateral aspect. Patient has chronic right-sided back pain and this AAA could be related to that pain. She is now admitted to the ICU
while she is pending EVAR tomorrow.
Chronic conditions LINE STAKER: seizures, migraines, tobacco use disorder, insomnia, asthma, mixed hyperlipidemia, Crohn's disease, panic disorder and GERD
Impression:
#AAA c/b saccular component s/p EVAR (POD#1)
#Active tobacco use
#Chronic right sided back pain - resolved s/p EVAR - hence this was related to nerve impingement from her AAA given its saccular component with extension towards right postero-lateral aspect
#Leukocytosis - likely reactive to nausea/chronic pain - no current signs of infection
#Thrombocytosis (mild) - now resolved
Plan:
Pain control
Encourage incentive spirometer
Antiemetics with Zofran +/- Ativan, however monitor for any worsening sedation
Supplemental oxygen as needed
Postoperative management as per vascular surgery
Considering she is an active smoker, I ordered a nicotine patch 21 mg --> patient refused
DVT prophylaxis: HSQ
Early nutrition post-op
Early mobilization post-op
Dispo: Vascular surgery is ok with downgrade. Transfer pt to telemetry. Core Drill Operator/pulmonary service will now sign off. Thank you for allowing me to be involved in the care of this patient. Please reconsult if there are any additional
questions/concerns, or if respiratory issues develop.
Data:
CXR 12-01-2023: Minimal left mid to lower lung discoid atelectasis versus scarring.
Subjective Dataa
Subjective Data
Date of Service:
Date of Service: December 03, 2023
Chief Complaint: Core Drill Operator Follow Up
Subjective:
Patient seen this morning. Back pain is gone. Nausea improved. BP 124/72. On room air breathing comfortably.
Review of Systems
General: Other (Negative unless mentioned above)
Objective Data
Data Reviewed
Vital Signs / I&O / Oxygen:
Vital Signs
Temp Pulse Resp BP Pulse Ox
98.2 F 72 13 103/67 92
12/03/23 03:41 12/03/23 05:00 12/03/23 05:00 12/02/23 15:30 12/03/23 05:00
Intake and Output
12/02/23 12/03/23 12/04/23
06:59 06:59 06:59
Intake Total 100 / 100 1200 / 1200
Output Total 200 / 200 2325 / 2325
Balance -100 / -100 -1125 / -1125
SaO2 92
Nasal Cannula flow liters per 2
minute
Physical Exam
General: Comfortable
HEENT: Normocephalic and Anicteric
Cardiovascular: S1-S2 and Peripheral Edema (negative)
Respiratory: Clear, Wheeze (negative), Crackles (negative) and Rhonchi (negative)
GI: Soft, Non Distended, Non Tender and Normal Bowel Sounds
Neurology: AO x 3
Skin: Warm and Dry
Labs/Micro/Reports
Lab Data
12/03/23 04:36
12/03/23 04:36
Laboratory Results
12/02/23 12/03/23
14:35 04:36
PT 14.1 13.1
INR 1.11 1.01
APTT 35.3 H
[2023-12-03] MEDS: VITAMIN B-12 5000 MCG PO (09:04)
[2023-12-03] MEDS: DILANTIN 300 MG PO ×2 (09:04→17:09)
[2023-12-03] MEDS: PEPCID 20 MG PO ×2 (09:04→21:03)
[2023-12-03] MEDS: FOLVITE 1 MG PO (09:05)
[2023-12-03] MEDS: ZYRTEC 10 MG PO (09:05)
--- NOTE | 2023-12-03 10:00 | PTCARENOTE ---
Resting-states Moprhine took the edge off of the groin soreness. Pulses unchanged.
[2023-12-03] MEDS: TYLENOL 650 MG PO (10:47)
--- NOTE | 2023-12-03 10:50 | PTCARENOTE ---
Assisted at 1030 with assist of 1 oob to the commode to void yellow urine and then to the chair. C/O 3-10 R groin soreness from moving. Medicated with Tylenol 650 mg PO. Gait was steady getting up. No c/o dizziness. VS as documented. Pulses and
bilat groin sites unchanged.
--- NOTE | 2023-12-03 11:40 | PTCARENOTE ---
Currently back in bed after voiding on the commode yellow urine. at the bedside. Pt did own mouth care and assisted with AM care.
[2023-12-03] MEDS: ULTRAM 25 MG PO (12:07)
--- NOTE | 2023-12-03 12:30 | PTCARENOTE ---
Assessment is unchanged. Does c/o groin soreness but has been easily able to move all around in bed and reposition herself. Tends to lay or lean or her side. Reminded pt not to cross her legs. Able to stand and ambulate without difficulty.
Remedicated with Ultram 25 mg po at 1210 for 6/10 R groin soreness. R groin site. unchanged. Dr. Lehman in and updated. Pt taking po's as such IV fluids capped per Dr. Lehman. No other changes.
[2023-12-03] MEDS: CARAFATE 1 GRAM PO (14:14)
[2023-12-03] MEDS: FLUSH (NSS) 2 FLUSH IV (14:15)
--- NOTE | 2023-12-03 14:20 | PTCARENOTE ---
Has been ambulating to the bathroom and voiding yellow urine. When walking to the bathroom pt admitted to tripping over her visitors foot but not falling- is c/o the R groin pain - site unchanged. Dr. Lopez updated. Pulses unchanged. Medicated
Morphine 2 mg IV. Slowly working on the rest of lunch. Call gonzalez in reach.
--- NOTE | 2023-12-03 16:00 | PTCARENOTE ---
Dozed after Morphine. States it really helped the soreness. Pulses unchanged. Pt for transfer to tele.
[2023-12-03] MEDS: CRESTOR 5 MG PO (17:10)
--- NOTE | 2023-12-03 17:31 | PTCARENOTE ---
.Report called to [address] [place] [address]. Will transfer pt via wheelchair. Stent card and script for Nictotine patch sent home with
--- NOTE | 2023-12-03 18:10 | PTCARENOTE ---
Pt transferred via wheelchair to 2113. Pulse checks completed with 2 mikayla RN. No changes. Dinner sent with pt
--- NOTE | 2023-12-03 18:25 | PTCARENOTE ---
Received report on patient, patient brought to unit by MASONRY INSTALLER.
Neurovascular checks completed at bedside with 2S RN and MASONRY INSTALLER. Assessment documented in worksheet.
Placed on Telemetry, SR on monitor. Removed L AC IV 20 and R FA 20 IV d/t leaking/pain. R FA 18 IV Patent.
[2023-12-03] MEDS: LEXAPRO 10 MG PO (21:03)
[2023-12-03] MEDS: NON-FORMULARY ITEM 8 MG PO (21:04)
[2023-12-03] MEDS: AMBIEN 10 MG PO (21:08)
[2023-12-04 03:10] VITALS: BP 98/74
[2023-12-04 07:18] VITALS: BP 128/91
--- NOTE | 2023-12-04 08:07 | W.PN.VS ---
Today's Communication / Plan
-
- discharge home
-follow up in office in 2 weeks
Assessment/Plan
-
POD 2 EVAR
- discharge home
-follow up in office in 2 weeks
Subjective Data
-
Date of Service: December 04, 2023
POD 2 EVAR
feeling great
mobilized without issue yesterday
+ Flatus, + BM
tolerating PO
voiding well
right groin sore
Objective Data
-
Vital Signs
Temp Pulse Resp BP Pulse Ox
98.1 F 90 16 128/91 94
12/04/23 07:18 12/04/23 07:18 12/04/23 07:18 12/04/23 07:18 12/04/23 07:18
Intake and Output
12/03/23 12/04/23 12/05/23
06:59 06:59 06:59
Intake Total 1200 / 1280 1500 / 1500
Output Total 2325 / 2325 1600 / 1600
Balance -1125 / -1045 -100 / -100
Intake:
Oral fluids 1020 / 1020
IV fluids (Total) 1200 / 1280 480 / 480
Nss 1,000 ml @ 80 mls/hr IV . 1200 / 1280 480 / 480
[id number] [facility] Rx#:[id number]
Output:
Urine, Real 2024 850 / 850
Urine, Voided 300 / 300 750 / 750
Other:
Number of approximated MODERATE 2
amounts of urine
Lab Results
12/03/23 04:36
12/03/23 04:36
Calcium 8.3 mg/dl (8.4-10.2) L 12/03/23 04:36
Phosphorus 5.1 mg/dl (2.5-4.5) H 12/02/23 07:34
Magnesium 2.2 mg/dl (1.6-2.3) 12/02/23 07:34
Total Bilirubin 0.4 mg/dl (0.2-1.3) 12/01/23 14:23
AST 24 U/L (14-36) 12/01/23 14:23
ALT 18 U/L (0-35) 12/01/23 14:23
Alkaline Phosphatase 84 U/L (38-126) 12/01/23 14:23
Total Protein 6.8 g/dl (6.3-8.2) 12/01/23 14:23
Albumin 4.0 g/dl (3.5-5.0) 12/01/23 14:23
Physical Exam
-
L 2+ DP, R 2+ PT
feet warm, motor/sensory intact
groins soft, no hematoma or ecchymosis
[2023-12-04] MEDS: DILANTIN 300 MG PO (08:10)
[2023-12-04] MEDS: VITAMIN B-12 5000 MCG PO (08:10)
[2023-12-04] MEDS: PEPCID 20 MG PO (08:12)
[2023-12-04] MEDS: HEPARIN SC ×2 (08:12→08:25)
[2023-12-04] MEDS: FOLVITE 1 MG PO (08:12)
[2023-12-04] MEDS: ZYRTEC 10 MG PO (08:12)
--- NOTE | 2023-12-04 09:22 | CM ---
CM following re: discharge planning.
Reviewed pt's chart, met with pt.
Discharge order noted. Pt is aware, expressed her agreement with discharge. Pt stated she feels good and her is coming to transport home.
Pt reports she is independent with functional ability. No after care VN services identified.
D/C plan: home no needs. to transport.
--- NOTE | 2023-12-04 10:00 | W.DS.TRANS ---
DC Summary - Collision Technician
-
Discharge Instructions:
Discharge Diagnosis/Procedures EVAR
Diet As tolerated
Activity No strenuous activity
Driving Restrictions No driving for 1 week
Bathing Restrictions OK to Shower
Instructions:
Stand-Alone Forms: DC Instr - Vascular OR
Changes to Home Medications: Yes
Discharge Medications:
DC Medications w/original date entered in [employer]
Medical Marijuana 0.25 ml PO DAILY 12/01/23
cyanocobalamin (vitamin B-12) 2,000 mcg tablet 5,000 mcg PO DAILY Supplement 12/01/23
escitalopram oxalate 10 mg tablet (Lexapro) 10 mg PO HS Mental Health/Anxiety 12/01/23
famotidine 20 mg tablet (Pepcid) 20 mg PO BID Gastrointestinal Issue 12/01/23
folic acid 1 mg tablet 1 mg PO DAILY Supplement 12/01/23
levocetirizine 5 mg tablet (Xyzal) 5 mg PO DAILY Allergies 12/01/23
perampanel 8 mg tablet (Fycompa) 8 mg PO HS Seizures 12/01/23
phenytoin sodium extended 100 mg capsule 300 mg PO BID@0900,1800 Seizures 12/01/23
rimegepant 75 mg disintegrating tablet (Nurtec ODT) 75 mg PO DAILYPRN PRN migraines 12/01/23
rosuvastatin 5 mg tablet (Crestor) 5 mg PO QPM High Cholesterol 12/01/23
sucralfate 1 gram tablet (Carafate) 1 g PO DAILY@1500 Gastrointestinal Issue 12/01/23
zolpidem 10 mg tablet 10 mg PO HS Sleep 12/01/23
nicotine 21 mg/24 hr daily transdermal patch 21 mg transdermal DAILY #2 ea 12/02/23
Home Medication Changes
added nicotine patches
Pending Results: No
--- NOTE | 2023-12-04 10:10 | PTCARENOTE ---
Patient ready for discharge. Removed IV. Went over discharge instructions with patient.
Patient wheeled out to 's car, discharged to home.
--- NOTE | 2023-12-05 10:01 | W.DCSUMMARY ---
Discharge Summary
Discharge Data
Date of Admission: 12/01/23
Date of Discharge: 12/04/23
-
Pending Results: No
Hospital Course
Attending: Farhan
Consultants: Pulmonary medicine, emergency medicine
Allergies: Bees, colestipol, penicillins, Imitrex
Procedure with date: 12/02/2023: Endovascular repair of abdominal aortic aneurysm
History of present illness: The patient is an 58-year-old female with multiple medical conditions including: Asthma, gastroesophageal reflux disease, pulmonary embolism, abdominal aortic aneurysm, cholecystectomy, common bile duct bypass, seizures,
migraines, insomnia, Crohn's disease, panic disorder, active smoker. Patient presented on 12/01/2023 to the emergency room for increased abdominal pain. Patient admits pain had been worsening since 2 AM patient well-known to the vascular service had
been seen in the office about a week ago for the symptoms. We were in the planning phases of her surgery. Due to the increase in pain and size of her aneurysm we plan to do an endovascular aneurysm repair the following day.
Hospital Course: Briefly, the patient underwent urgent endovascular abdominal aortic aneurysm repair without complications on 12/02/2023, and recovered in PACU. Following recovery phase one and two patient was transferred to intensive care unit per
protocol for continued hemodynamic monitoring. Diving Board Assembler consulted to aid in medical management from a critical care perspective. POD #1 (12/03/2023) Patient neurologically intact, denies pain, and tolerating PO diet. Groin sites clean, dry, and
intact with suture line well approximated and soft. No evidence of hematoma. Arterial line and IV fluids discontinued. Patient able to ambulate without difficulty or incident. POD 2 (12/04/23) patient stable for discharge to home.
Prescriptions and follow up appointment are included in the DC summary casing soaker note. All instructions were given to the patient in both written and verbal form and the patient expressed understanding.
Discharge Plan
-
Patient Disposition: Home (Routine Discharge)
Discharge Diagnosis/Procedures: EVAR
Condition: Good
Diet: As tolerated
Activity: No strenuous activity
Driving Restrictions: No driving for 1 week
Bathing Restrictions: OK to Shower
Stand Alone Forms: DC Instr - Vascular OR
Referrals:
Franchesca Blanchard MD [Family Provider] -
Olesya Hairston PA-C [Specified Professional Personl] - 12/19/23 1:00 pm (Vascular follow up)
Prescriptions:
New
nicotine 21 mg/24 hr Patch 24 Hour
21 mg transdermal DAILY Qty: 2 0RF
Continued
phenytoin sodium extended 100 mg Capsule
300 mg PO BID@0900,1800
zolpidem 10 mg tablet
10 mg PO HS
rosuvastatin [Crestor] 5 mg Tablet
5 mg PO QPM
sucralfate [Carafate] 1 gram Tablet
1 g PO DAILY@1500
famotidine [Pepcid] 20 mg Tablet
20 mg PO BID
folic acid 1 mg Tablet
1 mg PO DAILY
escitalopram oxalate [Lexapro] 10 mg Tablet
10 mg PO HS
levocetirizine [Xyzal] 5 mg Tablet
5 mg PO DAILY
Fycompa 8 mg Tablet
8 mg PO HS
cyanocobalamin (vitamin B-12) 2,000 mcg Tablet
5,000 mcg PO DAILY
Nurtec ODT 75 mg Tablet,Disintegrating
75 mg PO DAILYPRN PRN (Reason: migraines)
Medical Marijuana
0.25 ml PO DAILY
Discharge Orders:
Discharge Patient (As Directed); Ordered 12/04/23
Ordered By: Susanne Lopez
Discharge Date and Time
Discharge Date/Time: 12/04/23 10:06
== END 2023-12-04 10:06 | disposition home or self-care (01) | DRG 269 ==
LOC: 2 SOUTH 14:57
PROVIDERS: Nurse Practitioner Acute Care; Physician Assistant; ADMITTING PHYSICIAN Surgery Vascular Surgery; CONSULT PHYSICIAN Internal Medicine Critical Care Medicine; EMERGENCY PHYSICIAN Emergency Medicine; FAMILY PHYSICIAN Internal Medicine
PROC: B4101ZZ Fluoroscopy of Abdominal Aorta using Low Osmolar Contrast (ICD-10-PCS; 2023-12-02)
PROC: 04V03DZ Restriction of Abdominal Aorta with Intraluminal Device, Percutaneous Approach (ICD-10-PCS; 2023-12-02)
DX: I71.43 Infrarenal abdominal aortic aneurysm, without rupture (principal); K50.90 Crohn's disease, unspecified, without complications; M54.9 Dorsalgia, unspecified; D75.839 Thrombocytosis, unspecified; K21.9 Gastro-esophageal reflux disease without esophagitis; J45.909 Unspecified asthma, uncomplicated; R56.9 Unspecified convulsions; F17.210 Nicotine dependence, cigarettes, uncomplicated; F12.90 Cannabis use, unspecified, uncomplicated; F41.0 Panic disorder [episodic paroxysmal anxiety]; G47.00 Insomnia, unspecified; D72.829 Elevated white blood cell count, unspecified; G89.29 Other chronic pain; E78.2 Mixed hyperlipidemia; G43.909 Migraine, unspecified, not intractable, without status migrainosus; Z82.49 Family history of ischemic heart disease and other diseases of the circulatory system; Z88.0 Allergy status to penicillin; Z88.8 Allergy status to other drugs, medicaments and biological substances; Z86.711 Personal history of pulmonary embolism; Z91.030 Bee allergy status
CPT/HCPCS: 34705; 34709; 71045; 76937; 80048; 80053; 81003; 82962; 83690; 83735; 84100; 84484; 85025; 85027; 85610; 85730; 86850; 86900; 86901; 93005; 99285; C1760; C1769; C1773; C1894; C2628; Q9967